=== PATIENT | male | born 1930 | race Caucasian/White ===

== ENCOUNTER 2018-03-04 09:33 | Observation (INO) | payer OTHER ==
[~2018-03-04] VITALS: Ht 182.9 cm; Wt 85.7 kg
[2018-03-04 10:08] VITALS: BP 130/90
[2018-03-04] MEDS ORDERED: PREG100C PO (10:19)
[2018-03-04] MEDS ORDERED: METO25TA35 PO (10:19)
[2018-03-04] MEDS ORDERED: ATOR40TA78 PO (10:19)
[2018-03-04] MEDS ORDERED: APIX5TAB PO (10:19)
[2018-03-04] MEDS ORDERED: ACET650S21 PO (10:19)
[2018-03-04 10:42] LABS: ANION GAP 5 mmol/L (5-15); CALCIUM 8.6 mg/dL (8.5-10.1); CHLORIDE 119 mmol/L (98-107); CREATININE 1.11 mg/dL (0.7-1.3)
[2018-03-04 10:47] LABS: BASOPHILS # (AUTO) 0.03 x10^3/uL (0-0.1); BASOPHILS % (AUTO) 1 % (0-1); EOSINOPHILS # (AUTO) 0.11 x10^3/uL (0-0.4); EOSINOPHILS % (AUTO) 2 % (1-7); LYMPHOCYTES # (AUTO) 0.42 x10^3/uL (1-3.4); LYMPHOCYTES % (AUTO) 8 % (22-44); MD NO; MEAN CORPUSCULAR HEMOGLOBIN 33.2 pg (27.5-34.5); MEAN CORPUSCULAR HGB CONC 33.2 g/dL (33.2-36.2); MEAN PLATELET VOLUME 7.8 fL (7.4-10.4); MONOCYTES # (AUTO) 0.31 x10^3/uL (0.2-0.8); MONOCYTES % (AUTO) 6 % (2-9); NEUTROPHILS # (AUTO) 4.32 x10^3/uL (1.8-6.8); NEUTROPHILS % (AUTO) 83 % (42-75); PLATELET COUNT 154 x10^3/uL (130-400); RED BLOOD COUNT 2.94 x10^6/uL (4.38-5.82); RED CELL DISTRIBUTION WIDTH 18.7 % (9.4-14.8)
[2018-03-04] MEDS ORDERED: SODIUM CHLORIDE 0.9% 1,000 ML IV ONE (11:00)
[2018-03-04] MEDS ORDERED: MIDAZOLAM 1 MG/ML, 5ML ONE (13:05)
[2018-03-04] MEDS ORDERED: TICAGRELOR 90 MG TABLET ONE ×2 (13:05→14:18)
[2018-03-04] MEDS ORDERED: LIDOCAINE 2%, 2ML ONE (13:05)
[2018-03-04] MEDS ORDERED: BIVALIRUDIN 250 MG ONE (13:05)
[2018-03-04] MEDS ORDERED: VERAPAMIL 2.5 MG/ML, 2ML ONE ×2 (13:05→13:46)
[2018-03-04] MEDS ORDERED: HEPARIN 1,000 UNITS/ML, 10ML ONE (13:05)
[2018-03-04] MEDS ORDERED: FENTANYL PF 100 MCG/2ML ONE (13:05)
[2018-03-04] MEDS ORDERED: DOBUTAMINE/D5W PMX 250 ML ONE (14:31)
[2018-03-04] MEDS ORDERED: ACETAMINOPHEN 650 MG/20.3 ML UDC PO PRN (15:00)
[2018-03-04] MEDS ORDERED: PLEASE ENTER ALLERGIES MC SCH (15:00)
[2018-03-04] MEDS ORDERED: ACETAMINOPHEN 325 MG TABLET PO PRN (15:00)
[2018-03-04] MEDS ORDERED: BISACODYL 5 MG EC TABLET PO PRN (15:00)
[2018-03-04] MEDS ORDERED: ZOLPIDEM 5MG TABLET PO PRN (15:00)
[2018-03-04] MEDS: SODIUM CHLORIDE 0.9% 1,000 ML IV SCH ×2 (17:32→22:35)
[2018-03-04 19:14] VITALS: BP 123/79
[2018-03-04] MEDS ORDERED: ATORVASTATIN 40 MG TABLET PO SCH (21:00)
[2018-03-04] MEDS ORDERED: TICAGRELOR 90 MG TABLET PO SCH (21:00)
[2018-03-04 21:23] VITALS: BP 124/78
[2018-03-04] MEDS: TICAGRELOR 90 MG TABLET PO SCH (21:25)
[2018-03-04] MEDS: APIXABAN 5 MG TABLET PO SCH (21:25)
[2018-03-04] MEDS: METOPROLOL TARTRATE 25 MG TABLET PO SCH (21:26)
[2018-03-04] MEDS: PREGABALIN 100 MG CAPSULE PO SCH (21:26)
[2018-03-05 01:50] VITALS: BP 134/83
[2018-03-05 05:03] LABS: ANION GAP 4 mmol/L (5-15); CALCIUM 8.5 mg/dL (8.5-10.1); CHLORIDE 117 mmol/L (98-107); CREATININE 0.97 mg/dL (0.7-1.3)
[2018-03-05] MEDS: SODIUM CHLORIDE 0.9% 1,000 ML IV SCH (06:35)
[2018-03-05 08:13] VITALS: BP 130/82
[2018-03-05] MEDS ORDERED: ASPIRIN 81 MG TABLET EC PO SCH (09:00)
[2018-03-05] MEDS: PREGABALIN 100 MG CAPSULE PO SCH (09:23)
[2018-03-05] MEDS: TICAGRELOR 90 MG TABLET PO SCH (09:23)
[2018-03-05] MEDS: METOPROLOL TARTRATE 25 MG TABLET PO SCH (09:23)
[2018-03-05] MEDS: APIXABAN 5 MG TABLET PO SCH (09:23)
[2018-03-05] MEDS ORDERED: TICA90TA PO (09:54)
== END 2018-03-05 11:58 | disposition home or self-care (01) ==
LOC: CACL 09:33 → ORIP 14:35 → 5SO 16:44
PROVIDERS: ADMIT Internal Medicine Cardiovascular Disease; ATTEND Internal Medicine Cardiovascular Disease
DX: I25.10 Atherosclerotic heart disease of native coronary artery without angina pectoris (principal); I10 Essential (primary) hypertension; I48.91 Unspecified atrial fibrillation; M79.606 Pain in leg, unspecified; Z95.0 Presence of cardiac pacemaker
CPT/HCPCS: 36415; 80048; 82040; 85014; 85018; 85025; 93350; 93454; 99156; 99157; C1724; C1725; C1769; C1874; C1887; C1894; C9607; G0378; J0583; J1250; J1644; J2250; J3010; J3490; J7030; Q9967

== ENCOUNTER 2018-03-15 07:46 | Inpatient (IN) | payer OTHER, MEDICARE ==
[~2018-03-15] VITALS: Ht 182.9 cm; Wt 86.0 kg
[~2018-03-15 07:46] MED LIST: ACET650S21 PO; APIX5TAB PO; ATOR40TA78 PO; FENTANYL PF 250 MCG/5ML ONE; METO25TA35 PO; PREG100C PO; TICA90TA PO
[2018-03-15] MEDS ORDERED: SODIUM CHLORIDE 0.9% 1,000 ML IV ONE (07:59)
[2018-03-15] MEDS ORDERED: CHLORHEXIDINE 15 ML BOTTLE MM PRN (08:00)
[2018-03-15] MEDS ORDERED: ONDANSETRON 2MG/ML, 2ML IVPush PRN (08:00)
[2018-03-15 08:04] VITALS: BP 146/83
[2018-03-15 08:26] LABS: BASOPHILS # (AUTO) 0.05 x10^3/uL (0-0.1); BASOPHILS % (AUTO) 1 % (0-1); EOSINOPHILS % (AUTO) 2 % (1-7); LYMPHOCYTES # (AUTO) 0.64 x10^3/uL (1-3.4); LYMPHOCYTES % (AUTO) 12 % (22-44); MD NO; MEAN CORPUSCULAR HEMOGLOBIN 33.4 pg (27.5-34.5); MEAN CORPUSCULAR HGB CONC 33.2 g/dL (33.2-36.2); MEAN CORPUSCULAR VOLUME 100.7 fL (81-97); MEAN PLATELET VOLUME 7.5 fL (7.4-10.4); MONOCYTES # (AUTO) 0.38 x10^3/uL (0.2-0.8); MONOCYTES % (AUTO) 7 % (2-9); NEUTROPHILS # (AUTO) 4.18 x10^3/uL (1.8-6.8); NEUTROPHILS % (AUTO) 78 % (42-75); PLATELET COUNT 145 x10^3/uL (130-400); RED BLOOD COUNT 3.24 x10^6/uL (4.38-5.82)
[2018-03-15] MEDS ORDERED: PLEASE ENTER HEIGHT AND WEIGHT MC SCH (08:30)
[2018-03-15] MEDS ORDERED: ASCO500T7 PO (08:30)
[2018-03-15 08:32] LABS: INTERNATIONAL NORMALIZED RATIO 1.06 (0.93-1.1)
[2018-03-15 08:36] LABS: ALANINE AMINOTRANSFERASE 53 U/L (12-78); ALBUMIN 3.5 g/dL (3.4-5.0); ANION GAP 8 mmol/L (5-15); CALCIUM 8.9 mg/dL (8.5-10.1); CHLORIDE 115 mmol/L (98-107); CREATININE 1.09 mg/dL (0.7-1.3)
[2018-03-15 08:40] LABS: ALKALINE PHOSPHATASE 68 U/L (45-117); BILIRUBIN,TOTAL 0.8 mg/dL (0.2-1.0); TOTAL PROTEIN 6.4 g/dL (6.4-8.2)
[2018-03-15] MEDS ORDERED: PROTAMINE SULFATE 10 MG/ML, 5ML ONE ×2 (10:00→10:41)
[2018-03-15] MEDS ORDERED: VERAPAMIL 2.5 MG/ML, 2ML ONE (10:00)
[2018-03-15] MEDS ORDERED: CEFAZOLIN 1,000 MG ONE ×2 (10:03→15:11)
[2018-03-15] MEDS ORDERED: HEPARIN 1,000 UNITS/ML, 10ML ONE (10:41)
[2018-03-15] MEDS ORDERED: DEXTROSE 4 GM TAB.CHEW PO PRN (12:00)
[2018-03-15] MEDS ORDERED: DEXTROSE 50%, 50ML SYRINGE IVPush PRN (12:00)
[2018-03-15] MEDS ORDERED: GLUCAGON 1 MG IM PRN (12:00)
[2018-03-15] MEDS ORDERED: ACETAMINOPHEN 325 MG TABLET PO PRN (12:00)
[2018-03-15] MEDS ORDERED: ACETAMINOPHEN 650 MG/20.3 ML UDC PO PRN (12:30)
[2018-03-15] MEDS: SODIUM CHLORIDE 0.9% 1,000 ML IV SCH ×2 (13:05→19:55)
[2018-03-15] MEDS: SODIUM CHLORIDE FLUSH 10ML SYR IVF SCH ×2 (13:06→21:46)
[2018-03-15] MEDS ORDERED: ONDANSETRON 2MG/ML, 2ML ONE (15:11)
[2018-03-15] MEDS ORDERED: DEXAMETHASONE 4 MG/ML, 1ML ONE (15:11)
[2018-03-15] MEDS ORDERED: SUCCINYLCHOLINE 20 MG/ML, 10ML ONE (15:11)
[2018-03-15] MEDS ORDERED: ROCURONIUM 10 MG/ML,10ML ONE (15:11)
[2018-03-15] MEDS ORDERED: PROPOFOL 10 MG/ML, 20ML ONE (15:11)
[2018-03-15 18:19] VITALS: BP 147/74
[2018-03-15] MEDS: PREGABALIN 100 MG CAPSULE PO SCH ×2 (21:46→22:08)
[2018-03-15] MEDS: ATORVASTATIN 40 MG TABLET PO SCH ×2 (21:46→22:09)
[2018-03-15] MEDS: APIXABAN 5 MG TABLET PO SCH ×2 (21:47→22:07)
[2018-03-15] MEDS: TICAGRELOR 90 MG TABLET PO SCH ×2 (21:47→22:07)
[2018-03-15] MEDS: METOPROLOL TARTRATE 25 MG TABLET PO SCH ×2 (21:47→22:08)
[2018-03-15 21:57] VITALS: BP 145/72
[2018-03-16 01:42] VITALS: BP 125/70
[2018-03-16] MEDS: SODIUM CHLORIDE 0.9% 1,000 ML IV SCH ×3 (03:55→19:55)
[2018-03-16 04:03] VITALS: BP 147/78
[2018-03-16 05:30] LABS: CHLORIDE 114 mmol/L (98-107)
[2018-03-16 05:32] LABS: BASOPHILS # (AUTO) 0.01 x10^3/uL (0-0.1); BASOPHILS % (AUTO) 0 % (0-1); EOSINOPHILS # (AUTO) 0.01 x10^3/uL (0-0.4); EOSINOPHILS % (AUTO) 0 % (1-7); LYMPHOCYTES # (AUTO) 0.46 x10^3/uL (1-3.4); LYMPHOCYTES % (AUTO) 6 % (22-44); MD NO; MEAN CORPUSCULAR HEMOGLOBIN 33.5 pg (27.5-34.5); MEAN CORPUSCULAR HGB CONC 33.5 g/dL (33.2-36.2); MEAN PLATELET VOLUME 7.4 fL (7.4-10.4); MONOCYTES # (AUTO) 0.55 x10^3/uL (0.2-0.8); MONOCYTES % (AUTO) 7 % (2-9); NEUTROPHILS # (AUTO) 6.77 x10^3/uL (1.8-6.8); NEUTROPHILS % (AUTO) 87 % (42-75); PLATELET COUNT 136 x10^3/uL (130-400); RED BLOOD COUNT 2.99 x10^6/uL (4.38-5.82); RED CELL DISTRIBUTION WIDTH 16.5 % (9.4-14.8)
[2018-03-16 05:36] LABS: ALBUMIN 3.1 g/dL (3.4-5.0); ANION GAP 10 mmol/L (5-15); CALCIUM 8.8 mg/dL (8.5-10.1); CREATININE 1.09 mg/dL (0.7-1.3)
[2018-03-16 06:51] VITALS: BP 138/78
[2018-03-16] MEDS: PREGABALIN 100 MG CAPSULE PO SCH ×2 (08:22→21:25)
[2018-03-16] MEDS: METOPROLOL TARTRATE 25 MG TABLET PO SCH ×2 (08:22→21:26)
[2018-03-16] MEDS: TICAGRELOR 90 MG TABLET PO SCH ×2 (08:23→21:26)
[2018-03-16] MEDS: APIXABAN 5 MG TABLET PO SCH ×2 (08:23→21:25)
[2018-03-16] MEDS: ASCORBIC ACID 500 MG TABLET PO SCH (08:23)
[2018-03-16] MEDS: SODIUM CHLORIDE FLUSH 10ML SYR IVF SCH ×2 (08:28→21:26)
[2018-03-16] MEDS ORDERED: ASCORBIC ACID 500 MG TABLET PO SCH (09:00)
[2018-03-16 12:29] VITALS: BP 156/79
[2018-03-16] MEDS ORDERED: KETOROLAC 30 MG/1 ML ONE (13:26)
[2018-03-16] MEDS ORDERED: KETOROLAC 30 MG/1 ML IVPush ONE (13:30)
[2018-03-16 18:58] VITALS: BP 115/70
[2018-03-16] MEDS ORDERED: ATORVASTATIN 40 MG TABLET PO SCH (21:00)
[2018-03-16 21:20] VITALS: BP 129/70
[2018-03-17 02:56] VITALS: BP 137/78
[2018-03-17] MEDS: SODIUM CHLORIDE 0.9% 1,000 ML IV SCH (03:55)
[2018-03-17 05:29] VITALS: BP 138/81
[2018-03-17] MEDS ORDERED: METOPROLOL SUCCINATE 50 MG TAB.ER.24H PO SCH (06:00)
[2018-03-17 07:42] VITALS: BP 126/71
[2018-03-17] MEDS: TICAGRELOR 90 MG TABLET PO SCH (09:39)
[2018-03-17] MEDS: APIXABAN 5 MG TABLET PO SCH (09:39)
[2018-03-17] MEDS: ASCORBIC ACID 500 MG TABLET PO SCH (09:40)
[2018-03-17] MEDS: PREGABALIN 100 MG CAPSULE PO SCH (09:40)
[2018-03-17] MEDS: SODIUM CHLORIDE FLUSH 10ML SYR IVF SCH (09:41)
[2018-03-17] MEDS ORDERED: METO-93 PO (13:05)
== END 2018-03-17 14:42 | disposition home or self-care (01) | DRG 267 ==
LOC: ORIP 07:46 → CCU 12:06 → 5SO 18:51
PROVIDERS: ADMIT Internal Medicine Cardiovascular Disease; ATTEND Internal Medicine Cardiovascular Disease
PROC: B246ZZ4 Ultrasonography of Right and Left Heart, Transesophageal (ICD-10-PCS; 2018-03-15)
PROC: 02RF3KZ Replacement of Aortic Valve with Nonautologous Tissue Substitute, Percutaneous Approach (ICD-10-PCS; principal; 2018-03-15 10:00)
DX: I08.0 Rheumatic disorders of both mitral and aortic valves (principal); D68.69 Other thrombophilia; I48.0 Paroxysmal atrial fibrillation; I50.32 Chronic diastolic (congestive) heart failure; I49.5 Sick sinus syndrome; I48.91 Unspecified atrial fibrillation; E78.5 Hyperlipidemia, unspecified; I11.0 Hypertensive heart disease with heart failure; I25.10 Atherosclerotic heart disease of native coronary artery without angina pectoris; Z95.0 Presence of cardiac pacemaker; Z98.61 Coronary angioplasty status
CPT/HCPCS: 33361; 36415; 80048; 80053; 82040; 83880; 85025; 85347; 85610; 85730; 86850; 86900; 86923; 87081; 93005; 93306; 93312; 93320; 93325; 93355; C1760; C1769; C1894; J0690; J1100; J1644; J1885; J2405; J2704; J2720; J3010; J0330; J7030; Q9967

== ENCOUNTER → 2018-10-07 | Outpatient (CLI) | payer OTHER ==
[~2018-10-07] MED LIST changes: +ASCO500T7 PO; -FENTANYL PF 250 MCG/5ML ONE; +METO-93 PO; +Vitamin d PO
[2018-10-07 11:44] LABS: ANION GAP 9 mmol/L (5-15); CALCIUM 9.4 mg/dL (8.5-10.1); CHLORIDE 111 mmol/L (98-107); CREATININE 1.31 mg/dL (0.7-1.3); INTERNATIONAL NORMALIZED RATIO 1.03 (0.93-1.1); PROTHROMBIN TIME 10.7 Seconds (9.6-11.5)
[2018-10-07 11:57] LABS: CULTURE INDICATED? NO; MICROSCOPIC NOT IND
[2018-10-07 11:58] LABS: BASOPHILS # (AUTO) 0.04 x10^3/uL (0-0.1); BASOPHILS % (AUTO) 1 % (0-1); EOSINOPHILS # (AUTO) 0.06 x10^3/uL (0-0.4); EOSINOPHILS % (AUTO) 1 % (1-7); LYMPHOCYTES # (AUTO) 0.87 x10^3/uL (1-3.4); LYMPHOCYTES % (AUTO) 11 % (22-44); MD NO; MEAN CORPUSCULAR HEMOGLOBIN 32.6 pg (27.5-34.5); MEAN CORPUSCULAR HGB CONC 33.8 g/dL (33.2-36.2); MEAN CORPUSCULAR VOLUME 96.4 fL (81-97); MEAN PLATELET VOLUME 8.1 fL (7.4-10.4); MONOCYTES # (AUTO) 0.58 x10^3/uL (0.2-0.8); MONOCYTES % (AUTO) 7 % (2-9); NEUTROPHILS # (AUTO) 6.64 x10^3/uL (1.8-6.8); NEUTROPHILS % (AUTO) 81 % (42-75); PLATELET COUNT 149 x10^3/uL (130-400); RED CELL DISTRIBUTION WIDTH 14.5 % (9.4-14.8)
== END | disposition home or self-care (01) ==
LOC: STAR 10:43
PROVIDERS: ATTEND Neurological Surgery
DX: Z01.818 Encounter for other preprocedural examination (principal); M48.062 Spinal stenosis, lumbar region with neurogenic claudication
CPT/HCPCS: 36415; 71046; 80048; 81003; 85025; 85610; 85730; 93005

== ENCOUNTER → 2019-01-24 | Outpatient (CLI) | payer OTHER | END | disposition home or self-care (01) | LOC: CVU 09:25 | PROVIDERS: ATTEND Internal Medicine Cardiovascular Disease | DX: M79.604 Pain in right leg (principal); M79.605 Pain in left leg; R53.83 Other fatigue | CPT/HCPCS: 93922 ==